=== PATIENT | female | born 1945 | race Caucasian/White ===

== ENCOUNTER → 2016-09-14 | Outpatient (CLI) | payer OTHER, MEDICARE | LOC: FIMAGING 09:20 | PROVIDERS: ATTEND Physician Assistant | DX: M25.511 Pain in right shoulder (principal); M75.81 Other shoulder lesions, right shoulder; M75.51 Bursitis of right shoulder; M12.9 Arthropathy, unspecified ==

== ENCOUNTER → 2016-12-26 | Outpatient (CLI) | payer OTHER, MEDICARE | LOC: FIMAGING 09:33 | PROVIDERS: ATTEND Obstetrics & Gynecology | DX: R10.32 Left lower quadrant pain (principal) ==

== ENCOUNTER → 2017-01-05 | Outpatient (CLI) | payer OTHER, MEDICARE | LOC: FIMAGING 07:39 | PROVIDERS: ATTEND Obstetrics & Gynecology | DX: R10.32 Left lower quadrant pain (principal); K76.0 Fatty (change of) liver, not elsewhere classified ==

== ENCOUNTER → 2017-01-20 | Outpatient (CLI) | payer OTHER, MEDICARE | LOC: FIMAGING 11:49 | PROVIDERS: ATTEND Internal Medicine | DX: R10.32 Left lower quadrant pain (principal); M51.36 Other intervertebral disc degeneration, lumbar region ==

== ENCOUNTER → 2017-01-25 | Outpatient (CLI) | payer OTHER, MEDICARE | LOC: FIMAGING 08:52 | PROVIDERS: ATTEND Internal Medicine | DX: M81.0 Age-related osteoporosis without current pathological fracture (principal) ==

== ENCOUNTER 2017-05-15 19:38 | Emergency (ER) | payer OTHER, MEDICARE ==
--- NOTE | 2017-05-15 19:42 | EDPHY ---
HPI/HX/ROS/PE/MDM - Data Points Imaging: Discussed imaging studies w/ ripshear operator Radiologist, I viewed and interpreted images myself Narrative: CHIEF COMPLAINT: Chest pain HISTORY OF PRESENT ILLNESS: The patient is a 72 y/o female with a history of HI x2 with 5 stents, CHF, and emphysema complaining of chest pain, onset 2 weeks ago. She felt like an elephant was sitting on her chest at this time. She went to her PCP's office and they preformed an EKG which found that her heart rate was 43. For the past 2 weeks she has felt short of breath, primarily when she exerts herself. Today she saw her PCP who found a positive d-dimer. They advised her to present to the ED for a chest CT and have scheduled her for a stress test. She is currently having intermittent chest pain. The symptoms today are different than prior HI's. She has also been burping more than usual. During her prior HI's she developed pain in her legs, not her chest. No swelling in legs, history of DVT or PE, recent travel. I spoke with Dr. Fide Trotter regarding this patient. She would like the patient to have a chest CT to rule out a PE. No fever, chills, palpitations, vomiting, diarrhea, urinary complaints, headache , lightheadedness. REVIEW OF SYSTEMS: Aside from elements discussed in the HPI, a comprehensive 10-point review of systems was reviewed and is negative. PAST MEDICAL HISTORY: HI x2 with 5 stents, CHF, emphysema, hypertension, appendectomy, cholecystectomy, hypothyroidism, osteoporosis SOCIAL HISTORY: Lives in [place], retired, VITAL SIGNS: Reviewed by me GENERAL: Well-developed, well-nourished, frequent burping, resting comfortably in no respiratory distress. HEENT: Atraumatic. Eyes: No icterus, no injection. Mouth: moist mucous membranes. No erythema or lesions. Neck: supple with no adenopathy. LUNGS: Clear to auscultation bilaterally, no wheezes, rhonchi or rales. CARDIAC: Regular rate and rhythm, no rubs, murmurs or gallops. ABDOMEN: Soft, nontender, nondistended, bowel sounds normal. BACK: No CVA tenderness. EXTREMITIES: No trauma. No edema. Range of motion is normal throughout. NEURO: Alert and oriented, grossly nonfocal. SKIN: Warm and dry, no rash. PSYCHIATRIC: Normal mentation, no agitation. Portions of this note were transcribed by a medical claims analyst. I personally performed a history, physical exam, medical decision making, and confirmed accuracy of information the transcribed note. (Anne Marie Robles) ED Course: The patient is a 72 y/o female with a history of HI x2 with 5 stents, CHF, and emphysema presenting with intermittent chest pain and shortness of breath, onset 2 weeks ago. Her symptoms today are different than her prior HI's as her symptoms at that time included pain in her legs. Her physical exam is normal other than frequent burping and chest discomfort. Labs, chest CTA, and EKG ordered. Patient is possibly allergic to contrast, so she will be pre-medicated with 125mg IV Solu-Medrol and 50mg IV Benadryl. GI cocktail administered for patient's burping. 1956: 12-LEAD EKG: Please see the full report in Trace Master. My interpretation: Normal sinus rhythm with a rate of 63 2114: Patient is pacing in room and anxious, I suspect that this may be related to the Benadryl. 1mg IV Ativan administered. 2232: Spoke with Dr. Cedillo, radiologist, regarding the patient's chest CTA. There is no PE or acute findings. 2234: Reassessed patient and discussed imaging and laboratory results. After receiving the Ativan she is now complaining that she has a migraine headache. She is somewhat somnolent and somewhat confused. 2330: Patient has been resting comfortably. She is sleepy a headache. She tells me she takes Nucynta for migraine pain. She was given 0.5 mg Dilaudid to treat her pain. Plan will be to discharge her to home and when she is alert to follow up with Cardiology as previously arranged. (Anne Marie Robles) 6:36 a.m.- The patient was observed overnight in the emergency department. She began to feel better at about 3:00 a.m., however was hesitant drive home in the dark. I discussed the case with the hospitalist, however the patient has good outpatient follow-up, so we feel admission to the hospital for stress test is not needed at this time. Her pain has been going on for several weeks now. Her troponin was normal here. She was allowed to sleep until it was light outside and then drove herself home and will call her doctor today for follow- up. (Autumn Angel) MDM: After history and physical examination, the differential for chest pain was considered, including but not limited to, myocardial ischemia, acute coronary syndrome, pulmonary embolus, chest wall pain, gastric causes. (Anne Marie Robles) - Data Points Imaging Results: Imaging Impressions Chest/Thorax CTA 05/15/17 19:47 Impression: 1. No definite pulmonary thromboemboli. 2. Coronary atherosclerosis. 3. Mild atherosclerotic aorta, without aneurysm. 4. No acute pneumonia, pleural effusion, or pneumothorax. Findings and recommendations discussed with Emergency Department physician, Anne Marie Robles M.D., at 2230 hours, on May 15, 2017. Final report concurs with initial preliminary interpretation. A test result has been communicated to a licensed care provider and documented in the [employer] Critical Result system on 05/15/2017 22:35, Message ID [id number]. Laboratory Results: Laboratory Results 05/15/17 20:00 05/15/17 20:00 05/15/17 05/15/17 05/15/17 20:00 20:00 20:00 WBC 8.32 10^3/uL 10^3/uL (3.80-9.50) RBC 3.72 10^6/uL L 10^6/uL (4.18-5.33) Hgb 12.2 g/dL L g/dL (12.6-16.3) Hct 36.8 % L % (38.0-47.0) MCV 98.9 fL fL (81.5-99.8) MCH 32.8 pg pg (27.9-34.1) MCHC 33.2 g/dL g/dL (32.4-36.7) RDW 13.0 % % (11.5-15.2) Plt Count 333 10^3/uL 10^3/uL (150-400) MPV 9.2 fL fL (8.7-11.7) Neut % (Auto) 47.2 % % (39.3-74.2) Lymph % (Auto) 42.4 % % (15.0-45.0) [place] % (Auto) 7.7 % % (4.5-13.0) Eos % (Auto) 1.6 % % (0.6-7.6) Baso % (Auto) 1.0 % % (0.3-1.7) Nucleat RBC Rel Count 0.0 % % (0.0-0.2) Absolute Neuts (auto) 3.93 10^3/uL 10^3/uL (1.70-6.50) Absolute Lymphs (auto) 3.53 10^3/uL H 10^3/uL (1.00-3.00) Absolute Monos (auto) 0.64 10^3/uL 10^3/uL (0.30-0.80) Absolute Eos (auto) 0.13 10^3/uL 10^3/uL (0.03-0.40) Absolute Basos (auto) 0.08 10^3/uL 10^3/uL (0.02-0.10) Absolute Nucleated RBC 0.00 10^3/uL 10^3/uL (0-0.01) Immature Gran % 0.1 % % (0.0-1.1) Immature Gran # 0.01 10^3/uL 10^3/uL (0.00-0.10) Sodium 149 mEq/L H mEq/L (135-145) Potassium 3.8 mEq/L mEq/L (3.5-5.2) Chloride 109 mEq/L mEq/L (97-110) Carbon Dioxide 25 mEq/l mEq/l (22-31) Anion Gap 15 mEq/L mEq/L (8-16) BUN 17 mg/dL mg/dL (7-23) Creatinine 0.7 mg/dL mg/dL (0.6-1.0) Estimated GFR > 60 Glucose 92 mg/dL mg/dL (70-100) Calcium 9.2 mg/dL mg/dL (8.5-10.4) Total Bilirubin 0.3 mg/dL mg/dL (0.1-1.4) AST 26 IU/L IU/L (14-46) ALT 37 IU/L IU/L (9-52) Alkaline Phosphatase 72 IU/L IU/L (38-126) Troponin I < 0.012 ng/mL ng/mL (0.000-0.034) Total Protein 7.0 g/dL g/dL (6.3-8.2) Albumin 3.8 g/dL g/dL (3.5-5.0) Medications Given: Discontinued Medications Al Hydroxide/Mg Hydroxide (Maalox Susp) 30 ml PO ONCE ONE Stop: 05/15/17 20:36 Last Admin: 05/15/17 20:44 Dose: 30 ml Diphenhydramine HCl (Benadryl Injection) 50 mg IVP EDNOW ONE Stop: 05/15/17 20:35 Last Admin: 05/15/17 20:45 Dose: 50 mg Hydromorphone HCl (Dilaudid) 0.5 mg IVP EDNOW ONE Stop: 05/15/17 23:46 Last Admin: 05/15/17 23:50 Dose: 0.5 mg Hyoscyamine Sulfate (Levsin, Hyomax-Sl) 0.25 mg PO ONCE ONE Stop: 05/15/17 20:36 Last Admin: 05/15/17 20:45 Dose: 0.25 mg Lidocaine (Lidocaine 2% Viscous) 15 ml PO ONCE ONE Stop: 05/15/17 20:36 Last Admin: 05/15/17 20:44 Dose: 15 ml Lorazepam (Ativan Injection) 1 mg IVP EDNOW ONE Stop: 05/15/17 21:17 Last Admin: 05/15/17 21:17 Dose: 1 mg Methylprednisolone Sodium Succinate (Solu-Medrol) 125 mg IVP EDNOW ONE Stop: 05/15/17 20:35 Last Admin: 05/15/17 20:45 Dose: 125 mg Pantoprazole Sodium (Protonix) 40 mg IVP EDNOW ONE Stop: 05/15/17 20:36 Last Admin: 05/15/17 20:44 Dose: 40 mg General Time Seen by Provider: 05/15/17 19:38 Initial Vital Signs: Initial Vital Signs Temperature (C) 36.7 C 05/15/17 19:41 Heart Rate 74 05/15/17 19:41 Respiratory Rate 16 05/15/17 19:41 Blood Pressure 123/83 H 05/15/17 19:41 O2 Sat (%) 92 05/15/17 19:41 O2 Delivery Mode Room Air O2 (L/minute) 2 Allergies/Adverse Reactions: Sulfa (Sulfonamide Antibiotics) Allergy (Severe, Verified 05/15/17 19:41) Anaphylaxis codeine [Codeine] Allergy (Intermediate, Verified 05/15/17 19:41) Vomiting oxycodone HCl [From Percocet] Allergy (Intermediate, Verified 05/15/17 19:41) Vomiting Penicillins Allergy (Intermediate, Verified 05/15/17 19:41) Hives Iodinated Contrast- Oral and IV Dye [IV Dye, Iodine Containing] Allergy (Unknown , Verified 05/15/17 19:41) Unknown Home Medications: Medication Instructions Recorded Aspirin [Aspirin 81mg (*)] 81 mg PO DAILY 02/09/09 Carvedilol Phosphate [Coreg Cr] 40 mg PO DAILY 02/09/09 Cetirizine [ZyrTEC 10 mg (*)] 10 mg PO DAILY 08/16/13 Clopidogrel Bisulfate [Plavix (*)] 75 mg PO DAILY 08/16/13 Escitalopram Oxalate [Lexapro] 20 mg PO DAILY 08/16/13 Furosemide [Lasix 20 MG (*)] 20 mg PO BIDDIUR 08/16/13 Herbals/Supplements -Info Only 1 ea PO DAILY 08/16/13 Levothyroxine [Synthroid 50 mcg 50 mcg PO DAILY 08/16/13 (*)] Losartan Potassium [Cozaar] 100 mg PO DAILY 08/16/13 Ranitidine HCl 300 mg PO DAILY PRN 08/16/13 Tapentadol HCl [Nucynta] 1 tab PO BID PRN 10/28/15 Pantoprazole Sodium [Protonix 40mg 40 mg PO BID #60 tab 10/29/15 (*)] Departure - Departure Disposition: [facility] [place] Inpatient Acute Clinical Impression: Chest pain, rule out acute myocardial infarction Chest pain Qualifiers: Chest pain type: other chest pain Qualified Code(s): R07.89 - Other chest pain Reaction, drug, adverse Qualifiers: Encounter type: initial encounter Qualified Code(s): T88.7XXA - Unspecified adverse effect of drug or medicament, initial encounter Condition: Fair Instructions: Chest Pain (ED) Additional Instructions: Your evaluation emergency department has not demonstrated a pulmonary embolism. There is a chance that this chest pain is related to cardiac issues. As discussed with Dr. Trotter, you do not wish to be admitted to the hospital and you have made arrangements to have a nuclear stress test performed as an outpatient. I would encourage you continue taking Prilosec as directed for gastritis and reflux. You may return to the emergency department at any point if you develop worsening pain, severe shortness of breath, lightheadedness, fainting, or other concerns. Referrals: Fide Trotter MD [Primary Care Provider] - As per Instructions Arti Becerril MD [Medical Doctor] - As per Instructions Report Scribed for: Anne Marie Robles Report Scribed by: Padmini Khalil Date of Report: 05/15/17 Time of Report: 19:42
--- NOTE | 2017-05-15 20:00 | CPEKG ---
Heart Rate: 63 RR Interval: 952 P-R Interval: 196 QRSD Interval: 104 QT Interval: 412 QTC Interval: 422 P [place]: 53 QRS [place]: 32 T Wave [place]: 84 EKG Severity - BORDERLINE ECG - EKG Impression: SINUS RHYTHM EKG Impression: BORDERLINE R WAVE PROGRESSION, ANTERIOR LEADS EKG Impression: BORDERLINE T ABNORMALITIES, ANT-LAT LEADS Electronically Signed By: Anne Marie Robles 16-May-2017 10:15:51
[2017-05-15] MEDS ORDERED: methylPREDNISolone SOD SUCC 125 MG/2 ML VIAL IVP ONE (20:34)
[2017-05-15] MEDS ORDERED: HYOSCYAMINE SULFATE 0.125 MG TAB PO ONE (20:35)
[2017-05-15] MEDS ORDERED: LIDOCAINE 2% VISCOUS 15 ML UDCUP PO ONE (20:35)
[2017-05-15] MEDS ORDERED: PANTOPRAZOLE SODIUM 40 MG VIAL IVP ONE (20:35)
[2017-05-15] MEDS ORDERED: MAG HYDROX/AL HYDROX/SIMETH 30 ML UDCUP PO ONE (20:35)
[2017-05-15] MEDS ORDERED: LORazepam 2 MG/ML INJ ONE (21:14)
[2017-05-15] MEDS ORDERED: LORazepam 2 MG/ML INJ IVP ONE (21:16)
[2017-05-15] MEDS ORDERED: IOPAMIDOL (ISOVUE 370) 100 ML BTL IV ONE (21:18)
[2017-05-15] MEDS ORDERED: HYDROmorphONE/DILAUDID 1 MG/ML INJ IVP ONE (23:45)
[2017-05-16 03:18] LABS: PLATELET COUNT 333 10^3/uL (150-400)
[2017-05-16 05:22] VITALS: RESP 16; O2SAT 94
[2017-05-16 06:28] VITALS: BP 118/69; PULSE 72; TEMP 98.4
== END 2017-05-16 06:35 | disposition still patient (30) ==
DX: R07.89 Other chest pain (principal); I11.0 Hypertensive heart disease with heart failure; I50.9 Heart failure, unspecified; I25.2 Old myocardial infarction; T50.905A Adverse effect of unspecified drugs, medicaments and biological substances, initial encounter; Z95.5 Presence of coronary angioplasty implant and graft; Z79.82 Long term (current) use of aspirin
CPT/HCPCS: 71275; 93005; 96374; 96375; 99285; J1170; J1200; J2060; J2930; Q9967

== ENCOUNTER 2017-05-17 16:37 | Inpatient (IN) | payer OTHER, MEDICARE ==
--- NOTE | 2017-05-17 17:01 | EDPHY ---
H & P Time Seen by Provider: 05/17/17 16:56 HPI/ROS: CHIEF COMPLAINT: Chest discomfort HISTORY OF PRESENT ILLNESS: Patient was in the ED on 05/15 and had negative CTA after elevated d-dimer, presents with worsening trouble breathing with exertion, trouble going up the stairs. History of MA x 2 with 5 stents, burping more than usual. She feels like it is all central or left-sided chest discomfort, associated with increasing shortness of breath with going up the stairs. No cough. No leg symptoms which the patient tells me is her previous anginal equivalent. Currently symptoms are very mild. Not associated with recent injury or trauma or fever. REVIEW OF SYSTEMS: Eye: no change in vision ENT: no sore throat Cardiac: No palpitations or syncope Pulmonary: HPI Abdomen: no vomiting, diarrhea, abdominal pain Musculoskeletal: no back pain or leg pain Skin: no rash Neuro: no headache Constitutional: no fever : no urinary symptoms A comprehensive 10 point review of systems is otherwise negative aside from elements mentioned in the history of present illness. PAST MEDICAL HISTORY: Patient was in the emergency department on 05/15/2016, had elevated D-dimer but a negative CT angiogram of her chest for venous thromboembolism. Coronary disease with stenting, emphysema, hypertension, cholecystectomy, appendectomy. Social history: Primary care is Dr. Fide Trotter General Appearance: Alert and conversant, cooperative. Eyes: No scleral icterus. ENT, Mouth: Normal mucous membranes. Respiratory: Normal respiratory effort, breath sounds equal, lungs are clear to auscultation. Cardiovascular: Regular rate and rhythm. Gastrointestinal: Abdomen is soft and non tender. Neurological: Alert, face symmetric, normal motor and sensory in extremities. Skin: Warm and dry, no rashes. Musculoskeletal: No peripheral edema. Psychiatric: Not agitated. Emergency Department course/MDM: EKG shows old anterior infarct but no acute ST changes. 1710: Discussed with patient's primary care physician Dr. Fide Trotter wants the patient admitted for evaluation of possible unstable angina. 1731: Inform patient of her primary care physician's intention, patient did take oral aspirin today. Smoking Status: Former smoker Constitutional: Initial Vital Signs Temperature (C) 36.6 C 05/17/17 16:38 Heart Rate 70 05/17/17 16:38 Respiratory Rate 18 05/17/17 16:38 Blood Pressure 158/71 H 05/17/17 16:38 O2 Sat (%) 90 L 05/17/17 16:38 O2 Delivery Mode Room Air Allergies/Adverse Reactions: Sulfa (Sulfonamide Antibiotics) Allergy (Severe, Verified 05/15/17 19:41) Anaphylaxis codeine [Codeine] Allergy (Intermediate, Verified 05/15/17 19:41) Vomiting oxycodone HCl [From Percocet] Allergy (Intermediate, Verified 05/15/17 19:41) Vomiting Penicillins Allergy (Intermediate, Verified 05/15/17 19:41) Hives Iodinated Contrast- Oral and IV Dye [IV Dye, Iodine Containing] Allergy (Unknown , Verified 05/15/17 19:41) Unknown Home Medications: Medication Instructions Recorded Aspirin [Aspirin 81mg (*)] 81 mg PO DAILY 02/09/09 Carvedilol Phosphate [Coreg Cr] 40 mg PO DAILY 02/09/09 Cetirizine [ZyrTEC 10 mg (*)] 10 mg PO DAILY 08/16/13 Clopidogrel Bisulfate [Plavix (*)] 75 mg PO DAILY 08/16/13 Escitalopram Oxalate [Lexapro] 20 mg PO DAILY 08/16/13 Furosemide [Lasix 20 MG (*)] 20 mg PO BIDDIUR 08/16/13 Herbals/Supplements -Info Only 1 ea PO DAILY 08/16/13 Levothyroxine [Synthroid 50 mcg 50 mcg PO DAILY 08/16/13 (*)] Losartan Potassium [Cozaar] 100 mg PO DAILY 08/16/13 Medical Decision Making - Diagnostics EKG Interpretation: 12-lead EKG interpreted by me; official reading is in trace master. My interpretation is sinus rhythm with PVC and old anterior MA. Differential Diagnosis: Differential diagnosis considered for chest pain including but not limited to myocardial ischemia, aortic dissection, pericarditis, pulmonary embolus, chest wall pain, pleural inflammation and pulmonary infectious causes. Consult/Admit Bed Type: [place] [id number] - Data Points Laboratory Results: Laboratory Results 05/17/17 16:53 05/17/17 16:53 05/17/17 05/17/17 16:53 16:53 WBC 9.28 10^3/uL 10^3/uL (3.80-9.50) RBC 3.73 10^6/uL L 10^6/uL (4.18-5.33) Hgb 12.2 g/dL L g/dL (12.6-16.3) Hct 36.9 % L % (38.0-47.0) MCV 98.9 fL fL (81.5-99.8) MCH 32.7 pg pg (27.9-34.1) MCHC 33.1 g/dL g/dL (32.4-36.7) RDW 13.2 % % (11.5-15.2) Plt Count 326 10^3/uL 10^3/uL (150-400) MPV 8.9 fL fL (8.7-11.7) Neut % (Auto) 46.7 % % (39.3-74.2) Lymph % (Auto) 43.9 % % (15.0-45.0) [place] % (Auto) 8.0 % % (4.5-13.0) Eos % (Auto) 0.3 % L % (0.6-7.6) Baso % (Auto) 0.8 % % (0.3-1.7) Nucleat RBC Rel Count 0.0 % % (0.0-0.2) Absolute Neuts (auto) 4.34 10^3/uL 10^3/uL (1.70-6.50) Absolute Lymphs (auto) 4.07 10^3/uL H 10^3/uL (1.00-3.00) Absolute Monos (auto) 0.74 10^3/uL 10^3/uL (0.30-0.80) Absolute Eos (auto) 0.03 10^3/uL 10^3/uL (0.03-0.40) Absolute Basos (auto) 0.07 10^3/uL 10^3/uL (0.02-0.10) Absolute Nucleated RBC 0.00 10^3/uL 10^3/uL (0-0.01) Immature Gran % 0.3 % % (0.0-1.1) Immature Gran # 0.03 10^3/uL 10^3/uL (0.00-0.10) Sodium 145 mEq/L mEq/L (135-145) Potassium 3.6 mEq/L mEq/L (3.5-5.2) Chloride 109 mEq/L mEq/L (97-110) Carbon Dioxide 24 mEq/l mEq/l (22-31) Anion Gap 12 mEq/L mEq/L (8-16) BUN 24 mg/dL H mg/dL (7-23) Creatinine 0.8 mg/dL mg/dL (0.6-1.0) Estimated GFR > 60 Glucose 83 mg/dL mg/dL (70-100) Calcium 8.9 mg/dL mg/dL (8.5-10.4) Total Bilirubin 0.1 mg/dL D mg/dL (0.1-1.4) Conjugated Bilirubin 0.1 mg/dL mg/dL (0.0-0.5) Unconjugated Bilirubin 0.0 mg/dL mg/dL (0.0-1.1) AST 23 IU/L IU/L (14-46) ALT 34 IU/L IU/L (9-52) Alkaline Phosphatase 67 IU/L IU/L (38-126) Troponin I < 0.012 ng/mL ng/mL (0.000-0.034) Total Protein 6.8 g/dL g/dL (6.3-8.2) Albumin 3.6 g/dL g/dL (3.5-5.0) Lipase 177 IU/L IU/L (23-300) Departure - Departure Disposition: [facility] Inpatient Acute Clinical Impression: Chest pain Condition: Good Referrals: Fide Trotter MD [Primary Care Provider] - As per Instructions
--- NOTE | 2017-05-17 17:06 | CPEKG ---
Heart Rate: 65 RR Interval: 923 P-R Interval: 172 QRSD Interval: 98 QT Interval: 392 QTC Interval: 408 P [place]: 0 QRS [place]: 34 T Wave [place]: 74 EKG Severity - ABNORMAL ECG - EKG Impression: SINUS RHYTHM EKG Impression: MULTIPLE VENTRICULAR PREMATURE COMPLEXES EKG Impression: ANTERIOR INFARCT, AGE INDETERMINATE Electronically Signed By: Sharif Arroyo 17-May-2017 17:07:27
[2017-05-17 17:12] LABS: PLATELET COUNT 326 10^3/uL (150-400)
[2017-05-17] MEDS ORDERED: MAG HYDROX/AL HYDROX/SIMETH 30 ML UDCUP PO ONE (17:57)
[2017-05-17] MEDS ORDERED: HYDROCODONE/APAP 5/325 TAB PO PRN (18:23)
[2017-05-17] MEDS ORDERED: ONDANSETRON 4 MG/2 ML VIAL IVP PRN (18:23)
[2017-05-17] MEDS ORDERED: ONDANSETRON DISINTEGRATING 4 MG TAB PO PRN (18:23)
--- NOTE | 2017-05-17 20:46 | GHP ---
[f rep st] HISTORY AND PHYSICAL DATE OF ADMISSION: 05/17/2017 CHIEF COMPLAINT: Chest pain with shortness of breath. HISTORY OF PRESENT ILLNESS: The patient is a pleasant 72-year-old female with a past medical history of coronary artery disease with stenting in the past followed by Dr. Rob Cash, who presented to medical attention throughout the week after complaining of chest discomfort associated with shortn ess of breath. She had a D-dimer done earlier in the week which came back elevated and so she had a CT angiography of her chest which did not show any evidence of a pulmonary embolism. With the persistence of symptoms; however, she contacted her primary provider earlier today who recom mended coming to the emergency room for additional evaluation, especially in light of her heart histo ry. The chest discomfort is intermittent and she is currently chest pain free. The shortness of luke ath is noted with exertion and she states this is a change for her as compared to 2 weeks ago. She d oes not notice any leg pain or leg swelling. No calf pain noted either. She does note that she has been burping a lot recently, but denies any difficulty with food getting s tuck in her esophagus while eating. Her initial ECG in the emergency room showed normal sinus rhythm with PVCs and a Q-wave in V2 and V3 noted. Her initial troponin was negative as well. She is being admitted for further investigation. Of note she did have a cardiac catheterization done in October of 2015, which showed an old anterior w all IA, patent LAD and RCA stents and an estimated ejection fraction of 40%. PAST MEDICAL HISTORY: 1. Coronary artery disease with history of stent placement, followed by Dr. Cash. 2. Hypertension. 3. Hypothyroidism. 4. Osteoarthritis. PAST SURGICAL HISTORY: 1. Appendectomy. 2. Cholecystectomy. MEDICATIONS: 1. Aspirin 81 mg daily. 2. Plavix 75 mg daily. 3. Coreg CR 40 mg daily for which she states she stopped taking about 2 days ago. 4. Losartan 100 mg daily. 5. Lasix 20 mg twice a day which she states she does not take regularly. 6. Lexapro 20 mg daily. ALLERGIES: 1. Penicillin. 2. Sulfa. 3. Codeine. 4. Acetaminophen. SOCIAL HISTORY: The patient is currently . She lives part-time in [place] and part-time in [place]. She has 2 children, 1 son and 1 daughter. She is a former smoker, quitting many years a go. She is a full code status. FAMILY HISTORY: Father from coronary artery disease. Mother from old age. REVIEW OF SYSTEMS: CONSTITUTIONAL: No complaints of any fevers or chills. ENT: No recent upper re spiratory illnesses. CARDIOVASCULAR: Positive for chest discomfort described as pressure, which is intermittent, lasting a few minutes and then self-resolving. RESPIRATORY: No complaints of pleuriti c chest pains, but she does have shortness of breath with exertion noted. GI: Positive for increase d burping recently. No nausea or vomiting. No diarrhea. No constipation. No focal abdominal pains . : No report of any difficulty with urination. NEUROLOGIC: No complaints of any focal weakness or headaches. HEMATOLOGIC: No history of any deep vein thrombosis or pulmonary embolism. PSYCHIATRI C: Patient is on SSRI therapy. ENDOCRINE: There is a report of hypothyroidism, but she does not grace ear to be on any levothyroxine. SKIN: No new skin rashes. MUSCULOSKELETAL: No focal joint pains. PHYSICAL EXAMINATION: VITAL SIGNS: Temperature 36.6, blood pressure is 158/71, heart rate 70, respi rations 18 saturating 90% on room air. GENERAL: Patient is sitting in a chair at the bedside. Awak e, alert, conversant, able to provide a good history. No acute distress. HEENT: Extraocular moveme nts appear intact. No scleral icterus. Mucous membranes moist. NECK: Supple. No adenopathy. No thyroid enlargement noted. CHEST: Clear on auscultation. Normal respiratory effort. No wheezing n oted. HEART: Regular, soft heart sounds. No murmurs appreciated. ABDOMEN: Soft, nontender, nondi stended. GENITOURINARY: No Marcus catheter in place. EXTREMITIES: No significant pitting edema. NE UROLOGIC: Cranial nerves 2-12 appear intact. Strength 5/5 in extremities. LABORATORY: White blood cell count 9, hemoglobin 12, platelets 326. Sodium 145, potassium 3.6, chlo ride 109, bicarb 24, BUN 24, creatinine 0.8, glucose of 83, AST 23, ALT 34, alkaline phosphatase 67. Troponin less than 0.012. Lipase 177. ASSESSMENT/PLAN: 1. Chest pain. Uncertain etiology. With her cardiac history I recommend admission overnight for se rial troponins and echocardiogram and Lexiscan stress testing in the morning. This could be potentia lly reflux-related discomfort as she has been burping recently. I have continued her on a proton pum p inhibitor twice a day. Otherwise, continue current medical management for her history of coronary artery disease. 2. Hypertension. Elevated systolic readings in the 150s currently. This may be related to holding C oreg. It sounds like she may have had some slow heart rates recently which led her to stop the Coreg . I recommend that we continue it considering her heart history, but at a lower dose. I have reduce d the dose from 40 to 20 mg daily. 3. Hypothyroidism. This is noted in her history. I do not see that she is taking levothyroxine and we will check a TSH with her morning labs for reassessment. 4. Deep venous thrombosis prophylaxis. 5. Disposition. Will admit her under observation status. /[id number]/MODL
[2017-05-17] MEDS: PANTOPRAZOLE SODIUM 40 MG TAB PO SCH (21:52)
[2017-05-17] MEDS: ACETAMINOPHEN 325 MG TAB PO PRN (23:39)
[2017-05-18 04:26] LABS: PLATELET COUNT 274 10^3/uL (150-400)
--- NOTE | 2017-05-18 05:34 | CPEKG ---
Heart Rate: 60 RR Interval: 1000 P-R Interval: 196 QRSD Interval: 96 QT Interval: 424 QTC Interval: 424 P [place]: 32 QRS [place]: 32 T Wave [place]: 83 EKG Severity - ABNORMAL ECG - EKG Impression: SINUS RHYTHM EKG Impression: VENTRICULAR PREMATURE COMPLEX EKG Impression: ANTERIOR INFARCT, AGE INDETERMINATE Electronically Signed By: Narciso Meier 18-May-2017 07:27:57
[2017-05-18] MEDS ORDERED: LEVOTHYROXINE 75 MCG TAB PO SCH (06:00)
[2017-05-18] MEDS ORDERED: REGADENOSON 0.4 MG/5 ML SYR IVP ONE (08:08)
--- NOTE | 2017-05-18 08:46 | PDCARST ---
CAR Stress Test Results Type of Stress Test: Lexiscan stress test Indication: cp Description of Procedure: After informed consent was obtained, pt was established to ECG, blood pressure, HR and oximetry monitoring. STRESS EKG AND HEMODYNAMIC DATA. Resting heart rate: 55 BPM. Resting ECG: SR. Resting blood pressure: 144/73 mmHg. O2 saturation at rest: 95%. Peak heart rate: 96 BPM. Peak blood pressure: 162/74 mmHg. Arrhythmias: none. Symptoms: The patient experienced no typical symptoms of angina during stress or recovery. Stress/Infusion ECG: No change in rhythm with no significant ST/T wave changes. Stress/infusion O2 saturation: 95% Impression: Uneventful Lexiscan infusion. Conclusion: Await nuclear images.
[2017-05-18] MEDS ORDERED: NON-FORMULARY NEW DRUG (Escitalopram Oxalate [Lexapro] 20 MG) PO SCH (09:00)
[2017-05-18] MEDS ORDERED: NON-FORMULARY NEW DRUG (Losartan Potassium [Cozaar] 100 MG) PO SCH (09:00)
[2017-05-18] MEDS: ASPIRIN 81 MG CHEWABLE TAB PO SCH (11:58)
[2017-05-18] MEDS: LOSARTAN POTASSIUM 50 MG TAB PO SCH (11:59)
[2017-05-18] MEDS: ENOXAPARIN 40 MG/0.4 ML SYR SC SCH (11:59)
[2017-05-18] MEDS: CARVEDILOL CR 20 MG CAP PO SCH (11:59)
[2017-05-18] MEDS: CLOPIDOGREL BISULFATE 75 MG TAB PO SCH (11:59)
[2017-05-18] MEDS: FUROSEMIDE 20 MG TAB PO SCH ×2 (11:59→14:58)
[2017-05-18] MEDS: ESCITALOPRAM OXALATE 10 MG TAB PO SCH (11:59)
[2017-05-18] MEDS: PANTOPRAZOLE SODIUM 40 MG TAB PO SCH ×2 (12:00→20:10)
--- NOTE | 2017-05-18 12:20 | ASMTCMCOM ---
CM Note CM Note Notes: 05/18/2017 Case Management Note Met pt during rounds this morning. Pt has extensive cardiac history and was admitted for chest pain. Pt had abnormal stress test today and will have further testing tomorrow. There are no d/c case management needs anticipated. Pt is ambulating without difficulty in room, there is a cardiac rehab consult ordered. Pt has strong family support from daughters. Case Management d/c poc: anticipating independent with follow up as directed. Case Management available if needs change. Date Signed: 05/18/2017 12:19 PM Electronically Signed By:Pamela Peraza RN
--- NOTE | 2017-05-18 12:38 | ECHO ---
[email or web address] [address] [address] Main: [phone] Fax: [email or web address] Echocardiogram Name: MICHELLE SÁNCHEZ MR#: [id number] Study Date: 05/18/2017 Study Time: 07:27 AM Date of : 1945 Age: 72 year(s) Height: 152.4 cm (60 in.) Weight: 71.67 kg (158 lb.) BSA: 1.69 m2 Gender: Female Examination: Echo Indication: Chest pain/hx 5 stents/2 MIs Image Quality: Contrast: Requested by: Steven Yao BP: 143 mmHg/70 mmHg Heart Rate: Rhythm: Indication: Chest pain/hx 5 stents/2 MIs Procedure Staff Pencil Inspector: Jagruti Diego OSCAR Reading Physician: Colt Ortiz MD Requesting Provider: Conclusions: Normal size left ventricle. No LV hypertrophy. The ejection fraction is estimated to be 40-45 %. LV apical septal/apical inferior and apex are akinetic. LV basal inferior wall appears aneurysmal.. The mitral valve is normal in appearance and function. Mild mitral valve regurgitation is present. The aortic valve is normal in appearance and function. Mild aortic valve regurgitation is present. Trivial tricuspid valve regurgitation. Measurements: Chambers Valvular Assessment AV/MV Valvular Assessment TV/PV Normal Normal Normal Name Value Range Name Value Range Name Value Range Ao Nori (MM): 3.5 cm (2.2 cm-3.7 AV meanP mmHg ( - ) TR Vmax: 2.26 mm/s ( - ) cm) MV E Vmax: 0.75 m/s ( - ) TR PGmax: 20 mmHg ( - ) IVSd (2D): 0.8 cm (0.6 cm-1.1 MV A Vmax: 1.00 m/s ( - ) syst. PAP: 25 mmHg ( - ) cm) MV E/A: 0.75 ( - ) LVDd (2D): 5.2 cm (3.9 cm-5.3 cm) LVPWd (2D): 0.8 cm ( - ) LVEF (BP): 52 % (>=55 %) EF Range: 40-45 % Continued Measurements: Chambers Valvular Assessment AV/MV Valvular Assessment TV/PV Name Value Name Value Name Value LADs: 3.6 cm MV E/E' Septal: 15.40 CVP (est.): 5 mmHg Patient: MICHELLE SÁNCHEZ Study Date: 05/18/2017 Page 1 of 2 07:27 AM LADs Lon.7 cm MV E/E' Lateral: 14.00 LA Area: 16.7 cm2 Findings: Left Ventricle: Normal size left ventricle. No LV hypertrophy. The ejection fraction is estimated to be 40-45 %. LV apical septal/apical inferior and apex are akinetic. LV basal inferior wall appears aneurysmal.. Right Ventricle: Normal size right ventricle. Left Atrium: The left atrium is normal in size. Right Atrium: The right atrium is normal in size. Mitral Valve: The mitral valve is normal in appearance and function. Mild mitral valve regurgitation is present. Aortic Valve: The aortic valve is normal in appearance and function. Mild aortic valve regurgitation is present. Tricuspid Valve: The tricuspid valve is normal in appearance and function. Trivial tricuspid valve regurgitation. Pulmonic Valve: The pulmonic valve is normal in appearance and function. Aorta: The aorta is normal. Pericardium: No pericardial effusion. (No Signature Object) Patient: MICHELLE SÁNCHEZ Study Date: 05/18/2017 Page 2 of 2 07:27 AM [id number]
--- NOTE | 2017-05-18 14:46 | HOSPPROG ---
Hospitalist Progress Note Assessment/Plan: * Chest pain -stress images abnormal - rest images in am -recent outpatient CTA chest - no PE * CAD/stent -ASA/Plavix * Chronic systolic CHF - EF 40% -losartan, coreg -reduce coreg dose to see if it helps symptoms * Severe abd pain after eating for 1 month -had recent EGD/colonoscopy - negative -check CT abd/pelvis * GERD -BID PPI * Hypothyroid -increase synthroid for elevated TSH * Shoulder pain -check Xray Subjective: Still with severe belching. mid abd pain worse with eating ( previous deandre). Severe JEFFERY. Severe shoulder pain. When she talks a lot, she gets throat irriation and hard to breath Objective: Vital Signs Temp Pulse Resp BP Pulse Ox 36.6 C 75 12 171/76 H 96 05/18/17 11:43 05/18/17 11:43 05/18/17 11:43 05/18/17 11:43 05/18/17 11:43 Laboratory Results 05/18/17 03:50 05/18/17 03:50 05/17/17 05/18/17 05/19/17 05:59 05:59 05:59 Intake Total 100 Output Total 100 Balance 0 EKG viewed, my personal interpretation is - anterior TWI ECHO - EF stable at 40% ICD10 Worksheet Patient Problems: Problems Problem Status Onset Chest pain Acute Chronic systolic CHF (congestive heart failure), NYHA class 1 Acute Coronary artery disease Acute History of placement of stent in LAD coronary artery Acute Old anteroseptal myocardial infarction Acute
--- NOTE | 2017-05-18 15:11 | PDMN ---
Medical Necessity Medical necessity: C/M review: est. > 2 MN LOS for eval and TX of acute chest pain, 05/18/2017 myocardial perfusion scan - stress images abnormal, severe abdominal pain after eating x 1 month, right shoulder pain requiring planned CT abdomen / pelvis, right shoulder xray, 05/19/2017 myocardial perfusion scan res images, ongoing cardiac monitoring, acute inpt PT/OT, comorbid history of CAD with stent, chronic systolic CHF, GERD, hypothyroidism per 05/18/2017 Hospitalist progress note.
[2017-05-18] MEDS ORDERED: FAMOTIDINE 20 MG/NACL 50 ML IV ONE ×2 (15:18→20:00)
[2017-05-18] MEDS ORDERED: methylPREDNISolone SOD SUCC 125 MG/2 ML VIAL IVP ONE ×2 (15:18→20:00)
[2017-05-19] MEDS: LEVOTHYROXINE 88 MCG TAB PO SCH (06:48)
[2017-05-19] MEDS: CLOPIDOGREL BISULFATE 75 MG TAB PO SCH (09:06)
[2017-05-19] MEDS: ESCITALOPRAM OXALATE 10 MG TAB PO SCH (09:06)
[2017-05-19] MEDS: CARVEDILOL CR 20 MG CAP PO SCH (09:06)
[2017-05-19] MEDS: LOSARTAN POTASSIUM 50 MG TAB PO SCH (09:07)
[2017-05-19] MEDS: ASPIRIN 81 MG CHEWABLE TAB PO SCH (09:07)
[2017-05-19] MEDS: PANTOPRAZOLE SODIUM 40 MG TAB PO SCH ×2 (09:07→21:30)
[2017-05-19] MEDS: FUROSEMIDE 20 MG TAB PO SCH ×2 (09:07→15:06)
[2017-05-19] MEDS: ENOXAPARIN 40 MG/0.4 ML SYR SC SCH (09:08)
[2017-05-19] MEDS ORDERED: FAMOTIDINE 20 MG/NACL 50 ML IV ONE (09:30)
[2017-05-19] MEDS ORDERED: methylPREDNISolone SOD SUCC 125 MG/2 ML VIAL IVP ONE (09:30)
--- NOTE | 2017-05-19 16:37 | HOSPPROG ---
Hospitalist Progress Note Assessment/Plan: * Chest pain -stress images c/w old AL -recent outpatient CTA chest - no PE -suspect pain is GI in origin * Abd pain after eating, chest "spasms", excessive belching -very dramatic spells witnessed here -? esophageal spasm -if CT negative, then GI consult for EGD -per patient h/o esophageal "infection" -UTD on colonoscopy * GERD -BID PPI - home med * CAD/stent -ASA/Plavix * Chronic systolic CHF - EF 40% -losartan, coreg -reduce coreg dose to see if it helps symptoms * Hypothyroid -increase synthroid for elevated TSH * Shoulder pain - known rotator cuff tear -follows with Dr. Eller -would likely benefit from shoulder injection as outpatient * Suspect CARLA -outpatient sleep study Subjective: Still with frequent severe spells of pain, cause dramatic SOB Objective: Vital Signs Temp Pulse Resp BP Pulse Ox 36.7 C 75 16 121/58 H 94 05/19/17 11:10 05/19/17 15:33 05/19/17 15:33 05/19/17 15:33 05/19/17 15:33 Microbiology 05/19/17 08:57 Gastrointestinal Tract Panel (PCR) - Final Stool No Organism Detected 05/18/17 05/19/17 05/20/17 05:59 05:59 05:59 Intake Total [address] scan d/w Dr. Son - he recommends PO contrast only due to IV contrast allergy nuc med stress test - fixed defect AM lab - CBC, HIV given h/o esophageal infection - Physical Exam Constitutional: no apparent distress, appears nourished, not in pain Cardiovascular: regular rate and rhythym, no murmur, rub, or gallop Respiratory: no respiratory distress, no rales or rhonchi, clear to auscultation Gastrointestinal: normoactive bowel sounds, soft, non-tender abdomen, no palpable masses Skin: no rashes or abrasions, no fluctuance, no induration Neurologic: AAOx3, sensation intact bilaterally Psychiatric: interacting appropriately, not anxious, not encephalopathic, thought process linear ICD10 Worksheet Patient Problems: Problems Problem Status Onset Chest pain Acute Chronic systolic CHF (congestive heart failure), NYHA class 1 Acute Coronary artery disease Acute History of placement of stent in LAD coronary artery Acute Old anteroseptal myocardial infarction Acute
[2017-05-19] MEDS ORDERED: diphenhydrAMINE 25 MG CAP PO PRN (16:44)
[2017-05-20 04:23] LABS: PLATELET COUNT 271 10^3/uL (150-400)
[2017-05-20 06:16] LABS: HIV TYPE 1 AND 2 NEGATIVE (NEGATIVE)
--- NOTE | 2017-05-20 08:08 | CPEKG ---
Heart Rate: 61 RR Interval: 984 P-R Interval: 196 QRSD Interval: 100 QT Interval: 392 QTC Interval: 395 P [place]: 34 QRS [place]: 43 T Wave [place]: 81 EKG Severity - ABNORMAL ECG - EKG Impression: SINUS RHYTHM EKG Impression: ANTERIOR INFARCT, AGE INDETERMINATE Electronically Signed For: Narciso Meier 20-May-2017 08:09:17
[2017-05-20] MEDS ORDERED: PROPOFOL 200 MG/20 ML VIAL ONE (08:30)
[2017-05-20] MEDS ORDERED: LIDOCAINE 2% 5 ML SDV ONE (08:33)
--- NOTE | 2017-05-20 08:57 | PDANEPAE ---
ANE History of Present Illness h/o noncardiac chest pain, gastritis ANE Past Medical History - Cardiovascular History Hx Hypertension: Yes Hx Arrhythmias: No Hx Chest Pain: Yes Hx Coronary Artery / Peripheral Vascular Disease: Yes Hx CHF / Valvular Disease: Yes Hx Palpitations: No - Pulmonary History Hx COPD: No Hx Asthma/Reactive Airway Disease: No Hx Recent Upper Respiratory Infection: No Hx Oxygen in Use at Home: No Hx Sleep Apnea: No Sleep Apnea Screening Result - Last Documented: Negative - Endocrine History Hx Diabetes: No Hypothyroid: Yes Obesity: mild - Chronic Pain History Chronic Pain: Yes ANE Review of Systems Review of systems is: negative Review of Systems: ANE Patient History - Allergies Allergies/Adverse Reactions: Sulfa (Sulfonamide Antibiotics) Allergy (Severe, Verified 05/15/17 19:41) Anaphylaxis codeine [Codeine] Allergy (Intermediate, Verified 05/15/17 19:41) Vomiting oxycodone HCl [From Percocet] Allergy (Intermediate, Verified 05/15/17 19:41) Vomiting Penicillins Allergy (Intermediate, Verified 05/15/17 19:41) Hives Iodinated Contrast- Oral and IV Dye [IV Dye, Iodine Containing] Allergy (Unknown , Verified 05/15/17 19:41) Unknown - Home Medications Home medications: home medication list seen and reviewed Home Medications: Aspirin [Aspirin 81mg (*)] 81 mg PO DAILY 02/09/09 [Last Taken 05/17/17] Cetirizine [ZyrTEC 10 mg (*)] 10 mg PO DAILY PRN 08/16/13 [Last Taken 10/27/15] Clopidogrel Bisulfate [Plavix (*)] 75 mg PO DAILY 08/16/13 [Last Taken 05/17/17] Escitalopram Oxalate [Lexapro] 20 mg PO DAILY 08/16/13 [Last Taken 05/17/17] Furosemide [Lasix 20 MG (*)] 20 mg PO BIDDIUR 08/16/13 [Last Taken 05/10/17] Herbals/Supplements -Info Only 1 ea PO DAILY 08/16/13 [Last Taken 10/27/15] Losartan Potassium [Cozaar] 100 mg PO DAILY 08/16/13 [Last Taken 05/17/17] Levothyroxine [Synthroid 75 mcg (*)] 75 mcg PO DAILY06 05/17/17 [Last Taken ] Nitroglycerin [Nitrostat 0.4 mg (*)] 0.4 mg SL Q5M PRN 05/17/17 [Last Taken Unknown] Pantoprazole Sodium [Protonix 40mg (*)] 40 mg PO BID 05/17/17 [Last Taken AM] - NPO status NPO Since - Liquids (Date): 05/19/17 NPO Since - Liquids (Time): 23:30 NPO Since - Solids (Date): 05/19/17 NPO Since - Solids (Time): 19:30 - Smoking Hx Smoking Status: Former smoker ANE Labs/Vital Signs - Labs Result Diagrams: 05/20/17 03:30 05/18/17 03:50 - Vital Signs Blood Pressure: 144/63 Heart Rate: 65 Respiratory Rate: 16 O2 Sat (%): 92 Height: 152.4 cm Weight: 70.2 kg ANE Physical Exam - Airway Neck exam: FROM Mallampati Score: Class 2 Mouth exam: normal dental/mouth exam - Pulmonary Pulmonary: no respiratory distress - Cardiovascular Cardiovascular: regular rate and rhythym - ASA Status ASA Status: III ANE Anesthesia Plan Anesthesia Plan: GA with mask Urgent/Emergent Case: Grace rebolledo completed preop but documented later for safe timely pt care
[2017-05-20] MEDS ORDERED: ALBUTEROL 3 ML DEYVIAL IH PRN (08:58)
[2017-05-20] MEDS ORDERED: ACETAMINOPHEN 500 MG TAB PO PRN (08:58)
[2017-05-20] MEDS ORDERED: fentaNYL 100 MCG/2 ML INJ IVP PRN (08:58)
[2017-05-20] MEDS ORDERED: NALOXONE HCL 0.4 MG/ML INJ IVP PRN (08:58)
[2017-05-20] MEDS ORDERED: HYDROmorphONE/DILAUDID 1 MG/ML INJ IVP PRN (08:58)
[2017-05-20] MEDS ORDERED: LR 500 ML IV PRN (08:58)
[2017-05-20] MEDS ORDERED: ONDANSETRON 4 MG/2 ML VIAL IVP PRN (08:58)
--- NOTE | 2017-05-20 08:58 | POSTANESTH ---
Post Anesthetic Evaluation Cardiovascular Status: Normal, Stable Respiratory Status: Normal, Stable Level of Consciousness/Mental Status: Can Participate in Eval Pain Control: Adequate, Prn Tx Ordered Nausea/Vomiting Control: Adequate, Prn Tx Ordered Complications Possibly Related to Anesthesia: None Noted
--- NOTE | 2017-05-20 09:14 | GIREPORT ---
[facility] - Endoscopy Department Patient Name: Yudith Giraldo Procedure Date: 05/20/2017 8:22 AM Patient Type: Inpatient Attending MD/ ER Physician: Benjamin Guilelrmo MD Procedure: Upper GI endoscopy Indications: Chest pain (non cardiac) Patient Profile: 72 year old female presents for evaluation of non cardiac chest pain. Providers: Benjamin Guillermo MD Medicines: Monitored Anesthesia Care Complications: No immediate complications. Estimated blood loss: Minimal. Description of Procedure: After obtaining informed consent, the endoscope was passed under direct vision. Throughout the procedure, the patient's blood pressure, pulse, and oxygen saturations were monitored continuously. The Enteroscope was introduced through the mouth, and advanced to the second part of duoden um. The upper GI endoscopy was accomplished without difficulty. The patient tolerated the procedure well. Findings: The examined esophagus was normal. Patchy mildly erythematous mucosa was found in the gastric body and in the gastric antrum. Biopsies were taken with a cold forceps for histology. The examined duodenum was normal. Estimated Blood Loss: Estimated blood loss was minimal. Post Op Diagnosis: - Normal esophagus. - Erythematous mucosa in the gastric body and antrum. Biopsied. - Normal examined duodenum. - Etiology? No cause of pain found. No eosphagitis. Pain unrelated to eating. Recommend PPI therapy. GI will sign off. Thank you for the consulation. Recommendation: - [facility]. - Resume previous diet. - Continue present medications. - Use a proton pump inhibitor PO daily. - Follow up in office in 2-4 weeks - GI will sign off. - Thank you for allowing me to participate in the care of your patient. Attending Participation: I personally performed the entire procedure. Benjamin Guillermo MD Benjamin Guillermo MD 05/20/2017 9:13:52 AM This report has been signed electronicallyBenjamin Guillermo MD Number of Addenda: 0 Note Initiated On: 05/20/2017 8:22 AM [email or web address]
--- NOTE | 2017-05-20 09:17 | GCON ---
[f rep st] CONSULTATION DATE OF CONSULTATION: 05/20/2017 REFERRING PHYSICIAN: Rayne Bhakta MD REASON FOR CONSULTATION: Noncardiac chest pain. CHIEF COMPLAINT: Chest pain. HISTORY OF PRESENT ILLNESS: The patient is a 72-year-old female with hypertension, coronary artery disease with stents, fatty liver disease, hypercholesteremia, osteoporosis, nonulcerative dyspepsia, who presents to [facility] with complaints of chest pain. The patient states she was doing well until approximately 1 month ago when she started to experience a pressure sensation in her chest area. This sensation radiated to her back and was associated with belching. She got symptoms every day, which lasted multiple hours. She does not think that eating had any relationship to the pain. She believes she got the pain more when she was lying down. She denies any alleviating factors. She denies any nausea, vomiting, dysphagia, or odynophagia. She did have a prior upper endoscopy on December 14, 2015, which was essentially unremarkable. I am being asked by Dr. Bhakta to evaluate the patient in consultation regarding her noncardiac chest pain. PAST MEDICAL HISTORY: 1. Coronary artery disease with stent placement. 2. Hypertension. 3. Hypothyroidism. 4. Osteoarthritis. 5. Nonulcerative dyspepsia. 6. Fatty liver. 7. Chronic headaches/left facial pain. PAST SURGICAL HISTORY: 1. Appendectomy. 2. Gallbladder. 3. Angioplasty. ALLERGIES: Codeine, contrast dye, penicillin, steroids, sulfa. MEDICATIONS: 1. Aspirin 81 mg a day. 2. Plavix 75 mg. 3. Coreg. 4. Losartan 100 mg daily. 5. Lasix 20 mg a day. 6. Lexapro. SOCIAL HISTORY: . Lives half the year in [place] and half in [place]. Two children. Former smoker. FAMILY HISTORY: No history of esophageal, stomach, or colon cancer. REVIEW OF SYSTEMS: A 14-point comprehensive review of systems was asked. Pertinent positives and negatives per HPI. PHYSICAL EXAM: VITAL SIGNS: Blood pressure 144/63, pulse 74, respiration 18, temp 36.6. GENERAL: Awake, alert, oriented x3. No distress. HEENT: Anicteric sclerae. Moist mucosa. NECK: No JVD. CARDIOVASCULAR: Regular rate and rhythm. Positive S1, S2. No murmurs or gallops appreciated. LUNGS: Clear to auscultation bilaterally without wheezes, rales or rhonchi. ABDOMEN: Soft, nontender, nondistended. Positive bowel sounds. No guarding or rebound. EXTREMITIES: No clubbing, cyanosis or edema. NEUROLOGIC: 2 through 12 grossly intact. PSYCH: Normal affect. MUSCULOSKELETAL: No active joint deformities. LABORATORY DATA: WBC 10.59, hemoglobin 11.9, hematocrit 35.2. AST 23, ALT 34, total bilirubin 0.1. TSH 5.180. ASSESSMENT AND PLAN: 1. Chest pain-noncardiac. + dyspepsia. Will proceed with upper endoscopy to delineate the cause of her symptoms. The risks, benefits, and alternatives of the procedure were discussed in great detail with the patient. The risk of infection, bleeding, perforation, and sedation were discussed. Due to her significant coronary artery disease, she is at increased risk of sedation and we will thus need anesthesia support. 2. History of coronary artery disease. 3. History of hypercholesterolemia. 4. History of osteoporosis. Thank you very much for this consultation. /[id number]/MODL MTDD
[2017-05-20] MEDS: FUROSEMIDE 20 MG TAB PO SCH ×2 (10:05→14:41)
[2017-05-20] MEDS: ENOXAPARIN 40 MG/0.4 ML SYR SC SCH (10:05)
[2017-05-20] MEDS: CLOPIDOGREL BISULFATE 75 MG TAB PO SCH (10:06)
[2017-05-20] MEDS: LOSARTAN POTASSIUM 50 MG TAB PO SCH (10:06)
[2017-05-20] MEDS: ASPIRIN 81 MG CHEWABLE TAB PO SCH (10:06)
[2017-05-20] MEDS: PANTOPRAZOLE SODIUM 40 MG TAB PO SCH (10:08)
[2017-05-20] MEDS: LEVOTHYROXINE 88 MCG TAB PO SCH (10:08)
[2017-05-20] MEDS: CARVEDILOL CR 20 MG CAP PO SCH (10:08)
[2017-05-20] MEDS: ESCITALOPRAM OXALATE 10 MG TAB PO SCH (10:09)
[2017-05-20] MEDS: ACETAMINOPHEN 325 MG TAB PO PRN (14:40)
--- NOTE | 2017-05-20 14:55 | ASMTCMCOM ---
CM Note CM Note Notes: 05/20/2017 Case Managment Note Discussed case with patient this morning during rounds. There are no case management d/c needs identified. Pt ambulates without difficulty in the halls. PT daughters are supportive. Case Management d/c poc remains home independent with follow up as directed. Case Management available if needs change. Date Signed: 05/20/2017 02:54 PM Electronically Signed By:Pamela Peraza RN
[2017-05-20] MEDS ORDERED: IBUPROFEN 200 MG TAB PO ONE ×2 (15:51→16:00)
--- NOTE | 2017-05-20 15:55 | HOSPPROG ---
Hospitalist Progress Note Assessment/Plan: * Chest pain -stress images c/w old AL -recent outpatient CTA chest - no PE -suspect pain is GI in origin neg endoscopy * Abd pain after eating, chest "spasms", excessive belching -very dramatic spells witnessed here -? esophageal spasm -if CT negative, then GI consult for EGD -per patient h/o esophageal "infection" -UTD on colonoscopy * GERD -BID PPI - home med * CAD/stent -ASA/Plavix * Chronic systolic CHF - EF 40% -losartan, coreg -reduce coreg dose to see if it helps symptoms * Hypothyroid -increase synthroid for elevated TSH * Shoulder pain - known rotator cuff tear -follows with Dr. Eller -would likely benefit from shoulder injection as outpatient * Suspect CARLA -outpatient sleep study home today see dc summary > 30 minutes Subjective: many negative tests Objective: Vital Signs Temp Pulse Resp BP Pulse Ox 36.6 C 69 18 103/49 L 98 05/20/17 11:33 05/20/17 11:33 05/20/17 11:33 05/20/17 11:33 05/20/17 11:33 Microbiology 05/19/17 08:57 Gastrointestinal Tract Panel (PCR) - Final Stool No Organism Detected Laboratory Results 05/20/17 03:30 05/19/17 05/20/17 05/21/17 05:59 05:59 05:59 Intake Total 800 1740 725 Output Total 950 600 Balance 800 790 125 - Physical Exam Constitutional: no apparent distress, appears nourished Eyes: PERRL, anicteric sclera Ears, Nose, Mouth, Throat: moist mucous membranes, hearing normal Cardiovascular: regular rate and rhythym, no murmur, rub, or gallop Respiratory: no respiratory distress, no rales or rhonchi Gastrointestinal: normoactive bowel sounds, soft, non-tender abdomen Genitourinary: no bladder fullness, No proctor in urethra Skin: warm, normal color Musculoskeletal: full muscle strength, no muscle tenderness Neurologic: AAOx3, sensation intact bilaterally Psychiatric: interacting appropriately, not anxious Lymph, Heme, Immunologic: no cervical LAD ICD10 Worksheet Patient Problems: Problems Problem Status Onset Chest pain Acute Chronic systolic CHF (congestive heart failure), NYHA class 1 Acute Coronary artery disease Acute History of placement of stent in LAD coronary artery Acute Old anteroseptal myocardial infarction Acute
[2017-05-20 16:33] VITALS: BP 101/58; PULSE 68; RESP 12; TEMP 97.7; O2SAT 93
--- NOTE | 2017-05-21 09:33 | GDS ---
[f rep st] DISCHARGE SUMMARY DISCHARGE DIAGNOSES: 1. Coronary artery disease. 2. Chest pain, presumed musculoskeletal. 3. Rotator cuff tear. PROCEDURES: Stress test, which was negative for myocardial perfusion. Upper GI endoscopy which was unremarkable. She also had an abdominal pelvis CT, showing only diverticulosis without diverticuliti s. She also had known hepatic steatosis which is not a new finding in her. HOSPITAL COURSE: The patient presented with chest pain. She had an echocardiogram that showed an LV EF that is 40% to 45%. She had serial negative troponins, nonischemic EKG, ruled out, and then had a negative stress test. She had a negative abdominal CT, negative endoscopy. The abnormal echocardio gram is probably consistent with prior known history of coronary artery disease and stent placement. She was discharged home. This was felt to be likely musculoskeletal pain. She has noted to have a rotator cuff tear for which she follows with Dr. Eller as an outpatient. /[id number]/MODL
== END 2017-05-20 16:46 | disposition home or self-care (01) | DRG 313 ==
LOC: F2W 18:17 → OBSVTOIN 05-18 13:48
PROVIDERS: ADMIT Internal Medicine; ATTEND Internal Medicine
PROC: 0DB68ZX Excision of Stomach, Via Natural or Artificial Opening Endoscopic, Diagnostic (ICD-10-PCS; principal; 2017-05-20 11:00)
DX: R07.89 Other chest pain (principal); R10.9 Unspecified abdominal pain; M75.101 Unspecified rotator cuff tear or rupture of right shoulder, not specified as traumatic; I25.10 Atherosclerotic heart disease of native coronary artery without angina pectoris; E03.9 Hypothyroidism, unspecified; I50.22 Chronic systolic (congestive) heart failure; Z95.5 Presence of coronary angioplasty implant and graft; Z87.891 Personal history of nicotine dependence
CPT/HCPCS: 96374; A9500; G0378; J1170; J1200; J1650; J2060; J2704; J2785; J2930; Q9967

== ENCOUNTER → 2017-06-14 | Outpatient (CLI) | payer OTHER, MEDICARE | LOC: FIMAGING 12:04 | PROVIDERS: ATTEND Internal Medicine | DX: N64.4 Mastodynia (principal); R07.9 Chest pain, unspecified ==

== ENCOUNTER → 2018-08-08 | Outpatient (CLI) | payer OTHER, MEDICARE | LOC: FIMAGING 18:54 | PROVIDERS: ATTEND Orthopaedic Surgery | DX: M51.36 Other intervertebral disc degeneration, lumbar region (principal); M53.86 Other specified dorsopathies, lumbar region; M48.07 Spinal stenosis, lumbosacral region ==

== ENCOUNTER → 2018-08-11 | Outpatient (CLI) | payer OTHER, MEDICARE | LOC: BMCIMAGING 11:03 | PROVIDERS: ATTEND Orthopaedic Surgery | DX: N64.4 Mastodynia (principal); Z91.81 History of falling ==